=== PATIENT | male | born 1970 | race Caucasian/White ===

== ENCOUNTER 2020-02-21 17:44 | Emergency (ER) | payer BC ==
[2020-02-21] MEDS ORDERED: Sodium Chloride 0.9% 10 ML Syringe FLUSH PRN ×2 (18:06→19:41)
--- NOTE | 2020-02-21 18:08 | EDM.PDOC ---
<John Lombardo Robby - Last Filed: 02/21/20 19:22> ED HPI GENERAL MEDICAL PROBLEM - General Chief Complaint: Abdominal Pain Stated Complaint: ABD PAIN Time Seen by Provider: 02/21/20 18:05 Source of Information: Reports: Patient, RN Notes Reviewed - History of Present Illness INITIAL COMMENTS - FREE TEXT/NARRATIVE: 49 yr old male has had abd pain for the past 5 days, yesterday was somewhat better and than worse again today. He had had loose stools but no watery diarrhea. He has had nausea but no vomiting. He gets about 2 to 4 of these "episodes per year" for about the last 12 to 15 year. Hx of prior appendectomy. Mild generalized pain at time of exam, pain shoots across entire abd. Abdomen Pain Score (Numeric/FACES): 3 - Related Data Allergies Allergy/AdvReac Type Severity Reaction Status Date / Time Sulfa (Sulfonamide Allergy Severe Cannot Verified 02/21/20 17:57 Antibiotics) Remember artifical sweetener Allergy Severe Abdominal Uncoded 02/21/20 17:57 Pain Home Meds: Home Meds Acetaminophen [Tylenol Arthritis Pain] 2 tab PO DAILY 02/21/20 [History] Multivitamin [Multivitamins] 1 tab PO DAILY 02/21/20 [History] Omeprazole 20 mg PO DAILY 02/21/20 [History] Past Medical History - Past Surgical History GI Surgical History: Reports: Appendectomy, Hernia Repair/Other Musculoskeletal Surgical History: Reports: Other (See Below) Other Musculoskeletal Surgeries/Procedures:: ACL repair x2 Social & Family History - Tobacco Use Smoking Status *Q: Current Every Day Smoker Years of Tobacco use: 3 Packs/Tins Daily: 0.5 - Caffeine Use Caffeine Use: Reports: Coffee - Recreational Drug Use Recreational Drug Use: No ED ROS GENERAL - Review of Systems Review Of Systems: See Below Constitutional: Denies: Fever, Chills, Diaphoresis HEENT: Reports: No Symptoms Respiratory: Denies: Shortness of Breath Cardiovascular: Denies: Chest Pain GI/Abdominal: Reports: Abdominal Pain, Diarrhea (loose stools only), Nausea. Denies: Constipation, Vomiting Musculoskeletal: Denies: Shoulder Pain, Back Pain Skin: Denies: Rash Neurological: Reports: No Symptoms ED EXAM, GI/ABD - Physical Exam Exam: See Below General Appearance: Alert, No Apparent Distress Eyes: Bilateral: Normal Appearance Throat/Mouth: Normal Inspection Head: No: Facial Swelling Neck: Supple Respiratory/Chest: No Respiratory Distress, Lungs Clear, Normal Breath Sounds Cardiovascular: Regular Rate, Rhythm GI/Abdominal Exam: Soft, Other (mild tenderness upper and mid abd, LLQ nontender) Back Exam: No: CVA Tenderness (L), CVA Tenderness (R) Extremities: Normal Inspection, Normal Range of Motion Course - Re-Assessments/Exams Free Text/Narrative Re-Assessment/Exam: 02/21/20 19:22 WBC 13,500, CRP 8.1 so he does have some type of infectious or inflamatory process. Have given option of treating with abx vs doing a CT this evening and than treating per results of CT. He prefers to have a CT done this evening to try better sort this out. CT with IV, oral contrast ordered. It is now after change of shift, will transfer care to Dr Williamson. Departure - Departure Disposition: Home, Self-Care 01 Clinical Impression: Chronic pancreatitis Qualifiers: Pancreatitis type: unspecified pancreatitis type Qualified Code(s): K86.1 - Other chronic pancreatitis - Discharge Information Instructions: Chronic Pancreatitis Referrals: Hu Aly Jr, MD [Primary Care Provider] - Forms: ED Department Discharge Additional Instructions: Get the Zofran and the hydrocodone from the [employer] machine in the lobby before you go home, for your diet, no alcohol and the diet needs to be fat-free with basically carbs and protein for the next few days. You need to drink lots of fluids but avoid anything with artificial sweeteners, and you need to follow-up with Dr. Aly to consider an outpatient ultrasound of the gallbladder as well as a lipid profile. If there is marked worsening of your symptoms with nausea and vomiting you need to return to the ER for reevaluation Sepsis Event Note (ED) - Evaluation Sepsis Screening Result: No Definite Risk <Alfredo Williamson H - Last Filed: 02/21/20 21:16> Course - Vital Signs Last Recorded V/S: Last Vital Signs Temp 98 F 02/21/20 17:53 Pulse 96 02/21/20 17:53 Resp 16 02/21/20 17:53 BP 153/100 H 02/21/20 17:53 Pulse Ox 94 L 02/21/20 17:53 - Orders/Labs/Meds Orders: Active Orders 24 hr Category Date Time Status Peripheral IV Care [RC] . DIRECTED Care 02/21/20 18:07 Active Abdomen 2V AP Flat Upright [CR] Stat Exams 02/21/20 18:20 Taken Abdomen Pelvis w Cont [CT] Stat Exams 02/21/20 19:21 Taken Sodium Chloride 0.9% [Saline Flush] Med 02/21/20 18:06 Active 10 ml FLUSH ASDIRECTED PRN Sodium Chloride 0.9% [Saline Flush] Med 02/21/20 19:41 Active 10 ml FLUSH ONETIME PRN Peripheral IV Insertion Adult [OM.PC] Stat Oth 02/21/20 18:07 Ordered Medication Orders Sodium Chloride (Saline Flush) 10 ml FLUSH ASDIRECTED PRN PRN Reason: Keep Vein Open Last Admin: 02/21/20 18:23 Dose: 10 ml Documented by: EVETTE Sodium Chloride (Saline Flush) 10 ml FLUSH ONETIME PRN PRN Reason: Keep Vein Open Last Admin: 02/21/20 19:52 Dose: 10 ml Documented by: NOLAN Labs: Laboratory Tests 02/21/20 02/21/20 02/21/20 Range/Units 18:15 18:15 18:15 WBC 13.50 H (4.23-9.07) K/mm3 RBC 5.13 (4.63-6.08) M/mm3 Hgb 15.0 (13.7-17.5) gm/dl Hct 45.3 (40.1-51.0) % MCV 88.3 (79.0-92.2) fl MCH 29.2 (25.7-32.2) pg MCHC 33.1 (32.2-35.5) g/dl RDW Std Deviation 45.7 H (35.1-43.9) fL Plt Count 300 (163-337) K/mm3 MPV 9.7 (9.4-12.3) fl Neut % (Auto) 67.8 (34.0-67.9) % Lymph % (Auto) 18.7 L (21.8-53.1) % [place] % (Auto) 9.4 (5.3-12.2) % Eos % (Auto) 3.7 (0.8-7.0) Baso % (Auto) 0.1 (0.1-1.2) % Neut # (Auto) 9.15 H (1.78-5.38) K/mm3 Lymph # (Auto) 2.52 (1.32-3.57) K/mm3 [place] # (Auto) 1.27 H (0.30-0.82) K/mm3 Eos # (Auto) 0.50 (0.04-0.54) K/mm3 Baso # (Auto) 0.02 (0.01-0.08) K/mm3 Manual Slide Review Sodium 137 (136-145) mEq/L Potassium 3.9 (3.5-5.1) mEq/L Chloride 103 (98-107) mEq/L Carbon Dioxide 23 (21-32) mEq/L Anion Gap 14.9 (5-15) BUN 16 (7-18) mg/dL Creatinine 1.0 (0.7-1.3) mg/dL Est Cr Clr Drug Dosing 76.88 mL/min Estimated GFR (MDRD) > 60 (>60) mL/min BUN/Creatinine Ratio 16.0 (14-18) Glucose 115 H (74-106) mg/dL Calcium 9.4 (8.5-10.1) mg/dL Total Bilirubin 0.5 (0.2-1.0) mg/dL AST 9 L (15-37) U/L ALT 20 (16-63) U/L Alkaline Phosphatase 85 (46-116) U/L C-Reactive Protein 8.1 H* (<1.0) mg/dL Total Protein 7.5 (6.4-8.2) g/dl Albumin 3.6 (3.4-5.0) g/dl Globulin 3.9 gm/dL Albumin/Globulin Ratio 0.9 L (1-2) Lipase 296 (73-393) U/L Meds: Medications Generic Name Dose Route Start Last Admin Trade Name Freq PRN Reason Stop Dose Admin Sodium Chloride 10 ml 02/21/20 18:06 02/21/20 18:23 Saline Flush FLUSH 10 ml ASDIRECTED PRN Administration Keep Vein Open Sodium Chloride 10 ml 02/21/20 19:41 02/21/20 19:52 Saline Flush FLUSH 10 ml ONETIME PRN Administration Keep Vein Open Discontinued Medications Generic Name Dose Route Start Last Admin Trade Name Freq PRN Reason Stop Dose Admin Iopamidol 100 ml 02/21/20 19:41 02/21/20 19:51 Isovue-300 (61%) IVPUSH 02/21/20 19:42 100 ml ONETIME ONE Administration - Radiology Interpretation Free Text/Narrative:: T scan of the abdomen showed mild peripancreatic fat stranding and fluid at the level of the pancreatic neck and body suggestive of interstitial edematous pancreatitis. - Re-Assessments/Exams Free Text/Narrative Re-Assessment/Exam: 02/21/20 19:36 Alfredo Williamson MD. I am taking over the care of this patient. When the dental technician apprentice brought him the oral contrast he said he was allergic to sucralose and so we cannot give him p.o. contrast. We will go ahead with a CT scan with IV contrast only. 02/21/20 21:11 CT scan of the abdomen shows a peripancreatic fat stranding and fluid level in the pancreatic neck and body suggestive of interstitial edematous pancreatitis. Since his lipase is normal this would suggest this is a chronic process. When I talked to the patient regarding his triglycerides he does not know what they are or if they ever been drawn. He is not certain whether or not he is ever had his gallbladder ultrasound. I have encouraged him to follow-up with his family doctor to get an ultrasound as an outpatient and a lipid profile. I also suggested no alcohol but he states he does not drink alcohol anyway. His diet needs to avoid fats with lots of fluids and stick to carbs and protein. I will provide him with some Zofran and some hydrocodone. He knows that if this gets worse he needs to return to the ER for possible admission. Departure - Departure Time of Disposition: 21:13 Condition: Fair - Discharge Information *PRESCRIPTION DRUG MONITORING PROGRAM REVIEWED*: No *COPY OF PRESCRIPTION DRUG MONITORING REPORT IN PATIENT HAIR: No Sepsis Event Note (ED) - Focused Exam Vital Signs: Vital Signs Temp Pulse Resp BP Pulse Ox 02/21/20 17:53 98 F 96 16 153/100 H 94 L
[2020-02-21] MEDS ORDERED: Iopamidol 612 MG/ML 100 ML Bottle IVPUSH ONE (19:41)
--- NOTE | 2020-02-22 12:21 | CR ---
Abdomen: Supine and upright views the abdomen were obtained. Comparison: No prior abdominal x-ray. Findings: Bowel gas pattern is normal. Surgical material is seen within the left groin. Calcifications are seen within the pelvis most likely due to phleboliths. Bony structures are unremarkable. Impression: 1. Nothing acute is seen. Diagnostic code #2 This report was dictated in MDT
--- NOTE | 2020-02-22 12:30 | CT ---
CT abdomen and pelvis Technique: Multiple axial sections were obtained from above the dome of the diaphragm inferiorly through the pubic symphysis. Intravenous contrast was utilized. No oral contrast has been given. Comparison: No prior CT abdomen or pelvis study is available. Findings: Small nodule is noted within the right lung base. 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 Liver contains a small low density lesion within the upper right lobe which as too small to characterize by Hounsfield unit measurements but statistically is most likely due to a cyst measuring 5 mm. Liver is otherwise unremarkable. Spleen appears normal. Adrenal glands show no nodule. Kidneys show symmetric contrast enhancement without hydronephrosis or mass. Pancreas is normal in size. Equivocal haziness around the pancreas is seen and difficult to exclude minimal pancreatitis. Gallbladder contains no calcified gallstones. Aorta shows no aneurysm. Kidneys show symmetric contrast enhancement without hydronephrosis or mass. No retroperitoneal adenopathy or mesenteric abnormalities are seen. No pelvic mass or adenopathy is seen. Small fat-containing bilateral inguinal hernias are noted. Surgical material is seen within the left groin. Bone window settings were reviewed which shows no acute osseous finding. Slight degenerative change is noted. Minimal anterior wedging is noted of L1. Impression: 1. Minimal haziness around the pancreas. Difficult to exclude minimal pancreatitis. Please correlate with laboratory findings. 2. 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 Diagnostic code #3 This report was dictated in MDT I agree with preliminary report from [facility], finalized on 02/21/20, 9:18 PM Central Daylight Time
== END 2020-02-21 21:30 | disposition home or self-care (01) ==
LOC: JD.ED 17:44
DX: K86.1 Other chronic pancreatitis (principal); F17.210 Nicotine dependence, cigarettes, uncomplicated; Z90.49 Acquired absence of other specified parts of digestive tract; Z88.2 Allergy status to sulfonamides; Z91.048 Other nonmedicinal substance allergy status; Z79.899 Other long term (current) drug therapy
CPT/HCPCS: 36415; 74019; 74177; 80053; 83690; 85025; 86140; 99284; Q9967; 99283